=== PATIENT | female | born 1990 | race Caucasian/White ===

== ENCOUNTER 2017-02-26 18:58 | Emergency (ER) | payer MEDICAID ==
[~2017-02-26 18:58] MED LIST: DERMOPLAST SPRA56 GM TP; LAN-O-SOOTHE7 GM TP; NIPPLECREAM TP; PRENATAL VIT1 TAB PO; [UNRECOGNIZED DRUG - OTHER] TP
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
--- NOTE | 2017-02-27 21:33 | ER ---
ADMIT: 02/26/2017 RM/LOC: ER [facility] MR#: [id number] [address] [facility] [address] [place] [id number] WANDA COTA M [address] [facility] [address] [place] [id number] Emergency Room Report SEX: F AGE: 26 : 1990 DATE: 02/26/2017 ADDENDUM: The patient was discharged from the ER after radiologist over looked her knee x-ray. He sees lipohemarthrosis. I did contact the patient. Told to follow up with Dr. Weaver on Tuesday to have a possible MRI of that knee. The patient was contacted. She does understand. Her friend helped interpret over the phone. Again, she will follow up on Tuesday to discuss with her primary care physician on having an MRI. LILY Kent / Ranjit Ferguson MD / jaren JOB #: [id number] CC: Clemente Galindo MD, Attending Physician Amanda Weaver MD, Family Physician
== END 2017-02-26 20:00 | disposition home or self-care (01) ==
LOC: ER 18:58
PROC: 2W3RX1Z Immobilization of Left Lower Leg using Splint (ICD-10-PCS; principal; 2017-02-26)
DX: S80.02XA Contusion of left knee, initial encounter (principal); V29.3XXA Motorcycle rider (driver) (passenger) injured in unspecified nontraffic accident, initial encounter; Y92.410 Unspecified street and highway as the place of occurrence of the external cause